=== PATIENT | female | born 1960 | race Caucasian/White ===

== ENCOUNTER 2016-08-30 07:06 | Day surgery (SDC) | payer BC ==
[~2016-08-30] VITALS: Ht 162.6 cm; Wt 63.5 kg
[2016-08-30] MEDS ORDERED: ZEBETA10 MG PO (08:26)
[2016-08-30] MEDS ORDERED: PROTONIX20 MG PO (08:26)
[2016-08-30] MEDS ORDERED: ROBAXIN-750750 MG PO (08:26)
[2016-08-30] MEDS ORDERED: ULTRAM50 MG PO (08:27)
[2016-08-30] MEDS ORDERED: BUSPAR 15 MG TA15 MG PO (08:28)
[2016-08-30 08:43] LABS: HEMATOCRIT 40.7 % (36.0-48.0); HEMOGLOBIN 13.6 g/dL (12-16); MCH 31.8 pg (26.0-34.0); MCHC 33.4 g/dL (31.0-37.0); MCV 95.1 fL (80.0-100.0); MEAN PLATELET VOLUME 10.8 fL (7.4-10.4); RBC 4.28 10x6/uL (4.00-5.40); WBC 5.2 10x3/uL (4.8-10.8)
[2016-08-30 08:47] VITALS: BP 190/77; Ht 162.6 cm; Wt 63.5 kg
--- NOTE | 2016-08-30 09:21 | NUR ---
PATIENT STATES "I FEEL MUCH MORE CALM NOW, I THINK I COULD ALMOST GO TO SLEEP." AWAKE, ALERT, WATCHING TV, FRIEND AT BEDSIDE
[2016-08-30 12:12] LABS: APTT 32.5 SECONDS (22.8-39.4); INR 1.14 (0.85-1.17); PROTIME 14.5 SECONDS (11.6-15.0)
--- NOTE | 2016-08-30 12:15 | NUR ---
DR WEBER PAGED ABOUT PATIENT'S BLOOD PRESSURE, ORDER RECEIVED
--- NOTE | 2016-08-30 13:10 | NUR ---
LEFT FOREARM PIV DC'D WITH TIP INTACT, PATIENT DRESSING IN PERSONAL CLOTHING. SUGGESTED TO PATIENT THAT SHE SEE HER PRIMARY CARE DR SOON ABOUT HER BLOOD PRESSURE AND IF POSSIBLE USE HER FRIEND'S BLOOD PRESSURE CUFF TO TAKE A DAILY READING TO TAKE TO THE
--- NOTE | 2016-08-30 13:18 | NUR ---
DISCHARGED HOME VIA WHEELCHAIR TO PRIVATE VEHICLE WITH FRIEND
--- NOTE | 2016-09-03 09:51 | HP ---
PATIENT: ZULMA KEENE MEDICAL RECORD: [id number] ACCOUNT: [id number] LOCATION:D.[facility] : 64 ADMISSION DATE: 08/30/16 HISTORY AND PHYSICAL EXAMINATION HISTORY OF PRESENT ILLNESS: Zluma is a 55-year-old female with recurrent left side epistaxis. She has been packed previously back in June, could not identify a source of the bleeding as she was not bleeding at that time and has recently been packed. She has started having bleeding again in the office. I can tell that the bleeding is posteriorly and superiorly, possibly from high on the septum or the medial aspect of the middle turbinate up high, but it is not really accessible to visualize in the office. She is being admitted for endoscopic control of left posterior epistaxis. PAST MEDICAL HISTORY: Includes hypertension. CURRENT MEDICATIONS: Include Disprol and tramadol. ALLERGIES: No known drug allergies. She is a smoker. PHYSICAL EXAMINATION: GENERAL: She is a healthy-appearing female, alert and oriented. FACE: Normal, symmetric, no lesions. EYES: Sclerae and conjunctivae are normal. EARS: Canals and TMs normal. NOSE: No masses, polyps or drainage. 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 ORAL CAVITY AND OROPHARYNX: Normal palate. No lesions or masses. NECK: No masses, no adenopathy. CHEST: Clear. CARDIOVASCULAR: Regular rate and rhythm, no murmur. EXTREMITIES: Normal. IMPRESSION: Left posterior epistaxis, it has been a recurring issue. PLAN: I plan to take her to the OR for endoscopic evaluation and control. TRANSINT:[id number] Voice Confirmation ID: [id number] DOCUMENT ID: [id number] TADEO WILKERSON MD at 0951 CC: [id number] DICTATION DATE: 08/27/16 1504 RN MEDICATION: 08/27/16 1610 [facility] 08/30/16 [facility] [address] [place] [address]
--- NOTE | 2016-09-03 09:51 | OP ---
PATIENT NAME: ZULMA KEENE MEDICAL RECORD: [id number] :64 LOCATION:[facility] ADMISSION DATE: SURGEON: RJ BARNES MD DATE OF OPERATION: 08/30/2016 PREOPERATIVE DIAGNOSIS: Left posterior epistaxis. POSTOPERATIVE DIAGNOSIS: Left posterior epistaxis. PROCEDURE: Endoscopic cautery of posterior epistaxis on the left side. SURGEON: Rj Barnes MD. ANESTHESIA: General orotracheal. BLOOD LOSS: Less than 5 cc during the procedure. PACKING: ____ fibrillar only. COMPLICATIONS: None. DISPOSITION: Recovery stable. DESCRIPTION OF PROCEDURE: She was brought to the operating room and placed in supine position, sedated and intubated by anesthesia. The table was turned 90 degrees. She had already been decongested with Afrin. She was positioned, prepped and draped for nasal surgery. Left side of the nose was examined using a 0-degree scope. There was an Afrin pledget placed medially and laterally to the middle turbinate and along the inferior turbinate and that was given time for further decongestion and that was removed. Then, the nose was carefully and methodically inspected trying to be cautious not start up any bleeding. The inferior meatus and aspect of the inferior turbinate appeared normal. Middle and inferior turbinate was a little bit large. There was a synechia between the inferior turbinate and the septum from the trauma from previous nasal packing that was left intact until the end of the procedure to prevent any extra bleeding. The middle meatus was examined and the middle turbinate was quite medial already so that area was examined first and then the uncinate was intact. There was accessory ostia to the maxillary sinus behind that, that was suctioned and the entire maxillary sinus was full of dark blood that was completely evacuated. All the clot was removed from the maxillary sinus, but I did not really start up any bleeding, there was no blood from that sinus at all. The lateral nasal cavity, the nasopharynx, the septum were carefully inspected as using a 5 suction to gently manipulate things and looked around for any source of bleeding, then moved more superiorly and lateralized that middle turbinate slightly gently moving back blocking high on the nasal septum at the nasal vault carefully. There was an area on the medial aspect of the middle turbinate where there was a little folding crevice that was bleeding quite profusely that was cauterized, it really did not look particularly like an artery, was hard to tell she was just something caused by manipulation of the turbinate and removing further back the superior turbinate was visualized. There was a blood medial to the superior turbinate, it looked latterly first that area looked good and then with a little pressure on the septum, there were some septal deviation there, but a little pressure on the septum I could see the groove, medial to that superior turbinate and there was some bleeding from the medial aspect of the superior turbinate as well cauterized that was suction OPERATIVE REPORT [id number] ZULMA KEENE cautery and then carefully inspected the posterior aspect of the middle turbinate. There was some bleeding there from the posterior edge just anterior to its attachments. I cauterized some small areas on the lateral nasal wall just above the attachment of the inferior turbinate posteriorly. There was just a superficial vessels, but really did not look particularly suspicious, but I cauterized those and some more on the inferior turbinate and then I took down that synechiae and cauterized that area and bled very profusely, especially on the septum, but those areas were easily cauterized. Then I packed some fibular medial and lateral to that superior turbinate and along the nasal vault and posteriorly and the middle meatus behind that accessory ostia as well. The field was completely clean and dry, the nasopharynx was examined. The right side of the nose was examined. Nothing else was noted. She was awakened, extubated, and transported to recovery in good condition. No complications. TRANSINT:[id number] Voice Confirmation ID: [id number] DOCUMENT ID: [id number] RJ BARNES MD at 0951 CC: [id number] DICTATION DATE: 08/30/16 1117 [employer]IC: 08/30/16 1439 [facility] 08/30/16 [id number] [place] [address]
== END 2016-08-30 13:18 | disposition home or self-care (01) ==
LOC: D.OPS 07:06
PROVIDERS: Anesthesiology; Otolaryngology
DX: R04.0 Epistaxis (principal); I10 Essential (primary) hypertension; F17.200 Nicotine dependence, unspecified, uncomplicated; Z79.899 Other long term (current) drug therapy